=== PATIENT | female | born 1930 | race Caucasian/White ===

== ENCOUNTER → 2016-10-03 | Outpatient (CLI) | payer MEDICARE, BC ==
[~2016-10-03] MED LIST: ACID REDUCER; ALLOPURINOL100 MG PO; AMITRIPTYLINE 225 MG PO; AMLO5TAB PO; AMLODIPINE5 M1 PO; AMLODIPINE5 MG PO; ANTIVERT12.5 MG PO; APAP W/ CODEINE1 TAB PO; ASCRIPTIN325 MG PO; ASPIRIN 325MG325 MG PO; ASPIRIN 81MG TA81 MG PO; ASPIRIN ADULT L81 M2 PO; ASPIRIN81 MG PO; BACTRIM DS 8001 TAB PO; BENADRYL G12.5 MG/5 PO; BENTYL20 MG PO; BUSPAR 10MG TAB10 MG PO; CIPRO 500MG TA500 MG PO; DARVOCET-N 1001 EACH PO; DILTIAZEM CD 2240 MG PO; DOXYCYCLINE HY100 MG PO; DOXYCYCLINE MO100 MG PO; DYRENIUM50 MG PO; FISH OIL CONC1000 MG PO; FLAGYL250 MG PO; FLUTICASONE 50M16 GM; HYDROCHLOROTH12.5 M1 PO; ICAPS MV1 TA1 PO; IMDUR120 MG PO; IPRATROPIUM BROM3 M1 INH; ISOSORBIDE MON120 MG PO; Isosorbide Mono60 MG PO; KAPIDEX60 MG PO; LASIX20 MG PO; LEVAQUIN 750 M750 MG PO; LEVAQUIN500 MG PO; LEVOFLOXACIN 5500 MG PO; LEVOFLOXACIN 7750 M1 PO; LEVOTHYROXIN0.025 M1 PO; LEVOTHYROXINE0.1 MG PO; LOPRESSOR 25MG.25 M1 PO; LOPRESSOR 50 MG50 MG PO; LORTAB 5/500 501 TAB PO; LOSARTAN POTASS50 MG PO; MACROBID 100MG100 MG PO; MECLIZINE25 MG PO; MEDROL 4MG. DOSE4 MG PO; MELATONIN3 MG PO; METOPROLOL SUCC50 M1 PO; METOPROLOL100 MG PO; MICARDIS40 M1 PO; MICARDIS40 MG PO; MINOCYCLINE100 MG PO; MIRTAZAPINE15 M1 PO; MIRTAZAPINE30 MG PO; MOBIC7.5 MG PO; MULTI VITAMINS1 TA1 PO; Monodox100 MG PO; NITROQUICK0.4 MG SL; NITROSTAT0.4 MG SL; NORVASC5 MG PO; OMEPRAZOLE20 MG PO; PANTOPRAZOLE SO40 M1 PO; PERCOCET 5/3251 EACH PO; PRILOSEC20 MG PO; PROBIOTIC & ACI1 CAP PO; PROBIOTIC FORMU1 CA1 PO; PROBIOTIC1 EAC3 PO; PROTONIX 40MG T40 MG PO; RANITIDINE HCL150 MG PO; ROBITUSSIN DM S10 ML PO; SERTRALINE 50MG50 MG PO; SULFAMETHOXAZOL1 TA6 PO; SYNTHROID0.025 MG PO; TRAMADOL 512 EACH/PA PO; TRAZODONE 50MG50 MG PO; TRAZODONE100 MG PO; TUMS EX750 MG PO; TYLENOL 8 HOUR650 MG PO; TYLENOL ARTHRI650 MG PO; TYLENOL ES500 M1 PO; TYLENOL W/CODEI1 TA2 PO; TYLENOL WITH CO1 TA1 PO; ULTRACET 325 MG1 TAB PO; VIBRAMYCIN 100100 MG PO; VICODIN 5/500 T1 TAB PO; WARFARIN 3MG TAB3 MG PO; WARFARIN SODIUM3 MG PO; WARFARIN SODIUM4 MG PO; XANAX 0.5MG TA0.5 MG PO; XANAX0.5 MG OR; ZANTAC 150150 MG PO; ZOFRAN ODT4 MG PO; ZOFRAN4 MG PO; ZOLOFT 50MG TAB50 MG PO
== END ==
LOC: LAB 10:53
DX: I48.0 Paroxysmal atrial fibrillation (principal); Z79.01 Long term (current) use of anticoagulants; Z51.81 Encounter for therapeutic drug level monitoring

== ENCOUNTER 2017-01-10 15:51 | Emergency (ER) | payer MEDICARE, BC ==
[~2017-01-10] VITALS: Ht 165.1 cm; Wt 54.4 kg
[~2017-01-10 15:51] MED LIST changes: -BUSPAR 10MG TAB10 MG PO; -MELATONIN3 MG PO; -TYLENOL WITH CO1 TA1 PO; -WARFARIN 3MG TAB3 MG PO; -WARFARIN SODIUM4 MG PO
[2017-01-10] MEDS ORDERED: MELATONIN3 MG PO (16:22)
[2017-01-10] MEDS ORDERED: WARFARIN 3MG TAB3 MG PO (16:25)
[2017-01-10] MEDS ORDERED: WARFARIN SODIUM4 MG PO (16:25)
[2017-01-10] MEDS ORDERED: BUSPAR 10MG TAB10 MG PO (16:28)
--- NOTE | 2017-01-10 17:04 | Emergency Room Report ---
History of Present Illness Time Seen by [id number] Presenting Problem in Triage Pt arrived:Wheelchair Presenting Problem:C/O PAIN IN L ARM X2 DAYS, PT STATES NO KNOW INJURY. PT STATES PAIN WORSENS WITH MOVEMENT. 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 N Clinical Suspician of Infection? N Mental Status: 1 - Regular (Normal Baseline) Sepsis Risk:Low Sepsis Risk Have you (or family members/close friends) recently traveled outside the [place]? N If Yes, where/when: Have you had exposure to infectious disease within the past month? N TB? Other? Specify: Comment The patient complains of pain in her LEFT upper arm for 2-3 days. She says it hurts tries to move it so that now she can't move it at all. She denies any trauma or unusual activity. She locates the pain to the posterior side of her upper arm, upper triceps area. She is not otherwise ill. ALLERGIES Coded Allergies: cephalexin (Mild, 02/25/16) erythromycin base (Mild, 02/25/16) ezetimibe (From ZETIA) (Mild, 02/25/16) naproxen (Mild, 02/25/16) oxaprozin (Mild, 02/25/16) prednisone (Mild, 02/25/16) rofecoxib (From VIOXX) (Mild, 02/25/16) simvastatin (From ZOCOR) (Mild, 02/25/16) amoxicillin (From AUGMENTIN) (02/25/16) clavulanic acid (From AUGMENTIN) (02/25/16) Home Medications Active Scripts DILTIAZEM HCL (Diltiazem 24HR ER) 240 MG PO DAILY #30 Ref 5 Prov: 03/08/16 Reported Medications Metoprolol Tartrate (Lopressor) 50 MG PO BID Hydrochlorothiazide (Hydrochlorothiazide 12.5MG) 12.5 MG PO DAILY Allopurinol 100 MG PO BID Aspirin 81 MG PO DAILY Acetaminophen (Tylenol Arthritis) 650 MG PO TID Pantoprazole Sodium 40 MG PO DAILY #90 Isosorbide Mononitrate (Isosorbide Mononitrate ER) 120 MG PO DAILY #90 Levothyroxine Sodium (Levothyroxine 0.025MG) 0.025 MG PO DAILY #90 Mirtazapine 30 MG PO QHS #90 Melatonin 3 MG PO QHS WARFARIN SOD (Warfarin 3MG) 3 MG PO S,M,W,F,SAT Warfarin Sodium (Warfarin 4MG) 4.5 MG PO T,R Buspirone Hcl (Buspar 10MG) 10 MG PO BID #60 History Medical History General CAD? No Angina: Yes MO: No Hypertension? Yes Hyperlipidemia? Yes CHF? No DVT? No PE? No COPD? No Asthma? No Anemia? Yes GERD? No Gastric ulcers? No GI Bleed? No Hernia? Yes Thyroid Problems? No Hypothyroidism? No CVA? No Seizures? No Diabetes? No Insulin Dependent: No Insulin Pump: No Home FSBS? No Renal Insuffiency? Yes End Stage Renal Disease? No UTI? Yes Stones? No BPH? No GB Disease: Yes Nephritic Syndrome? No Asplenia? No Hepatitis? No Sickle Cell Disease? No Arthritis? Yes Migraines? No Cataracts? Yes Glaucoma? No MRSA? No HIV? No TB? No Anxiety? Yes Depression? Yes Cancer? No More? No Immunization Hx DT/Tetanus > 10 YRS Flu LAST YEAR Pneumonia Received In Past Surgical Hx Previous Surgery?Y [place] Back D & C STENT PLACEMENT CARDIAC R BREAST BIOPSY CATARACTS REMOVED RT FEMORAL ARTERY STENT TUBE IN RT EAR- OUT Appendix LEFT CARPEL TUNNEL R CARPAL TUNNEL Family History Family Hx Diabetes No CAD Yes Hypertension Yes Hyperlipidemia Yes Cancer Yes TB No Social History Smoking Hx Smoker: Never Smoker Tobacco: No Packs/day N/A Alcohol Alcohol: No Review of Systems All Other Systems Reviewed and Negative Constitutional denies fever Respiratory denies shortness of breath Cardiovascular denies chest pain Musculoskeletal joint pain (see HPI), denies neck pain Physical Exam Vital Signs Vital Signs Date Time Temp Pulse Resp B/P Pulse O2 O2 Flow FiO2 Ox Delivery Rate 01/10 1802 78 20 165/83 93 2.5 01/10 1729 72 20 164/80 98 01/10 1650 95 01/10 1603 98.3 75 20 183/81 95 2 General Appearance normal appearance, WD/WN Eye Exam - bilateral eye normal exam, bilateral eye PERRL, bilateral eye EOMI Ear, Nose, Throat hearing grossly normal, normal ENT inspection Neck normal inspection, non-tender, supple, full range of motion Respiratory Status Yes: trachea midline, chest symmetrical, non tender chest. No: respiratory distress. Lung Sounds bilateral: normal breath sounds, lungs clear. Cardiovascular normal exam, regular rate/rhythm, no peripheral edema, no gallop, no JVD, no murmur, no rub, normal peripheral pulses Peripheral Pulses Pulses normal Yes Gastrointestinal normal bowel sounds, normal exam, non tender, soft, no organomegaly Extremities she indicates tenderness in the LEFT upper arm posteriorly. She says it is tender there much more then over her shoulder joint. She has very minimal tenderness over the before GH joint. No tenderness over the clavicle or AC joint. no effusion. No erythema or heat., very limited range of motion of LEFT shoulder due to pain. Normal pulses, capillary refill, sensation, strength, and range of motion distal to the shoulder. 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 Yes [place] was queried for this patient? Yes Reference #: [id number] Comment 5:15 PM: The patient refuses any pain medication. 0 rxs. Results/Orders Laboratory Tests 01/10/17 1617: Sodium 122 L, Potassium 3.8, Chloride 83 L, Carbon Dioxide 35 H, BUN 10, Creatinine 0.6, Estimated Creat Clear 57, Estimated GFR (MDRD) 95, Glucose 121 H, Calcium 8.8, Total Bilirubin 0.6, AST 21, ALT 28, Alkaline Phosphatase 46, Creatine Kinase 30, CK-MB (CK-2) Rel Index 2.3, CK and CKMB Interp 0.7, Troponin I < 0.02, Total Protein 6.8, Albumin 3.6, Globulin 3.2, Albumin/Globulin Ratio 1.1, PT 20.9 H, INR 1.95 H, WBC 12.5 H, RBC 3.95 L, Hgb 12.4, Hct 36.5 L, MCV 92.5, RDW 12.7, Plt Count 236, MPV 6.4 L, Gran % 70.7, Gran # 8.9 H, Lymphocytes % 24.4, Monocytes % 4.6, Eosinophils % 0.2, Basophils % 0.1, Lymphocytes # 3.1, Monocytes # 0.6, Eosinophils # 0.0, Basophils # 0.0, PUBS MCHC 33.7, MCH 31.1 Current Medication Orders Sig/Es Start time Last Medication Dose Route Stop Time Status Admin Sodium Chloride 10 ML PRN PRN 01/10 1700 AC IV 01/11 1650 Orders Procedure Date/time Status STABILIZE JOINT 01/10 1830 Active PROTHROMBIN TIME 01/10 1726 Complete HUMERUS-LT 01/10 1717 Active ELECTROCARDIOGRAM REQUEST 01/10 165 Active [id number] VIEWS 01/10 1650 Active CHEST-PORTABLE 01/10 165 Active IV SALINE LOCK 01/10 165 Active OXYGEN PER NURSE 01/10 1650 Active CBC WITH AUTO DIFF 01/10 165 Complete CARDIAC ENZYMES 01/10 165 Complete CHEM 12 PROFILE 01/10 1650 Complete 12 LEAD EKG-JOHN (INITIAL) 01/10 UNK Active CM/EKG CM/EKG Comments EKG interpreted by Mahesh Strange MD: Rhythm: sinus Rate: 72 Dougherty: normal Ectopy: none Conduction: First-degree AV block ST Segment Changes: none T Wave Changes: none Q Waves: none No evidence of acute ischemia or injury Left ventricular hypertrophy Baseline artifact present, but I consider the EKG adequate for accurate interpretation. XRAY/CT/US XRAY/CT/US XRAY chest, shoulder, upper arm Comment X-ray interpreted by Mahesh Strange M.D.: Chest: Pulmonary fibrosis Humerus: No fracture or dislocation seen Shoulder: Extensive calcification at before meals joint. Calcification adjacent to the humeral head. No fracture seen. No dislocation. Departure Departure Disposition DC Home or Self Care(routine) Clinical Impression Primary Impression: Left shoulder pain Qualifiers: Chronicity: acute Qualified Code: M25.512 - Pain in left shoulder Condition STABLE Referrals John CAMPOS,Radhames Lopez (Family) Patient Instructions DI for Shoulder Pain Additional Instructions Sling as needed. Follow-up with orthopedic physician as soon as possible. Additional instructions for EXTREMITY PAIN: See your physician as soon as possible for further evaluation. Return to an emergency department immediately if you have uncontrollable pain, loss of feeling or inability to move your injured extremity. Additional instructions for CONTROLLED SUBSTANCES: You have been prescribed a medication that is a controlled substance. Controlled substances include pain medications known as opiates and sedative nerve medications known as benzodiazepines. Some common opiates include: Codeine (such as Tylenol #3) Hydrocodone (Vicodin, Lortab, Lorcet, [place]) Oxycodone (Percocet, Percodan, Oxycodone, Oxy IR) Some common benzodiazepines include: Diazepam (Valium) Lorazepam (Ativan) Alprazolam (Xanax) Clonazepam (Klonopin) Oxazepam (Serax) All of these controlled substances are highly addictive and frequently abused. Misuse can and frequently does lead to addiction as well as overdose and . Short term supplies, 3 days or less, are prescribed because of the highly addictive nature of the medication. Any of the controlled substance medication NOT taken should be disposed of properly and NOT SAVED. The recommended method of disposing of unused medications is: Place the medicines in a sealable plastic bag. If the medicine is a solid, crush it or add water to dissolve it. Add something undesirable (cat litter, coffee grounds, etc.) Dispose of sealed bag in household trash Do not flush or pour unused medicines down a sink or drain. Also, because of the addictive nature and frequent abuse, these medications are sometimes stolen. These medications should be kept in a safe place where they cannot be stolen. Do not keep them in your car or purse. Lost or stolen prescriptions for controlled substances WILL NOT BE REFILLED in this emergency department, regardless of whether a police report was filed. Prescriptions Current Visit Scripts ACETAMINOPHEN WITH CODEINE (Tylenol With Codeine #3 Tablet) 1 TAB PO Q6HP PRN pain #10 TAB ED Critical Care Critical Care No at 1831
[2017-01-10 18:04] LABS: BUN 10 mg/dL (7-18)
[2017-01-10 18:06] LABS: GFR (ESTIMATED) 95 ML/MIN (59-)
[2017-01-10 18:15] LABS: LYMPH # 3.1 K/mm3 (0.7-4.5); LYMPH % 24.4 % (10-50.0)
[2017-01-10 18:18] LABS: HEMOGLOBIN 12.4 g/dL (12.2-16.2)
[2017-01-10] MEDS ORDERED: TYLENOL WITH CO1 TA1 PO (18:30)
[2017-01-10 18:50] VITALS: BP 166/77
--- NOTE | 2017-01-10 20:21 | RADIOLOGY REPORT PS360 ---
[id number] VIEWS COMPARISON: Right shoulder 12/15/2010 HISTORY: Left shoulder pain TECHNIQUE: 3 views left shoulder FINDINGS: The clavicle is intact. There is prominent hypertrophic spurring of the AC joint both superiorly and inferiorly similar to the right shoulder film from November 2010. There also is faint calcification in the supraspinatus tendon near the critical zone. Humeral head and neck appear intact. IMPRESSION: Faint calcific tendinitis as indicated along with prominent degenerative hypertrophic changes of the AC joint similar to the right shoulder.
--- NOTE | 2017-01-10 20:40 | RADIOLOGY REPORT PS360 ---
HUMERUS-LT COMPARISON: Right humerus 09/29/2014 HISTORY: Left arm pain TECHNIQUE: AP lateral and oblique views FINDINGS: The humeral head and humeral shaft appear intact with no evidence of recent or old fracture. There is minor cortical irregularity of the greater tuberosity and is faint calcification likely within the supraspinatous tendon at the critical zone. The supracondylar humerus appears grossly normal. There are tiny dystrophic calcifications adjacent to the medial and lateral epicondyles of the humerus. IMPRESSION: Findings as described, no acute fracture seen.
--- NOTE | 2017-01-10 20:45 | RADIOLOGY REPORT PS360 ---
CHEST-PORTABLE COMPARISON: Portable upright chest 03/03/2016 HISTORY: Chest pain TECHNIQUE: Oral upright chest FINDINGS: There are low lung volumes bilaterally as noted previously. Prominent advanced interstitial fibrotic changes are seen in both lung baeza as noted on previous chest film. Again changes are slightly more prominent right lateral and lower lung baeza than left side. There is borderline cardiomegaly. The vascularity is difficult to evaluate because of the background interstitial changes but there is no obvious pulmonary congestion. There is no definite acute pneumonic infiltrate. IMPRESSION: Advanced interstitial pulmonary fibrosis basically stable and unchanged from the previous exam, doubt acute chest pathology
== END 2017-01-10 18:56 | disposition home or self-care (01) ==
LOC: ER 15:51
PROVIDERS: Emergency Medicine
DX: M25.512 Pain in left shoulder (principal); I10 Essential (primary) hypertension; F41.8 Other specified anxiety disorders; J84.10 Pulmonary fibrosis, unspecified

== ENCOUNTER → 2017-02-03 | Outpatient (CLI) | payer MEDICARE, BC ==
[~2017-02-03] MED LIST changes: +BUSPAR 10MG TAB10 MG PO; +MELATONIN3 MG PO; +TYLENOL WITH CO1 TA1 PO; +WARFARIN 3MG TAB3 MG PO; +WARFARIN SODIUM4 MG PO
== END ==
LOC: LAB 13:27
DX: I48.0 Paroxysmal atrial fibrillation (principal); Z79.01 Long term (current) use of anticoagulants; Z51.81 Encounter for therapeutic drug level monitoring

== ENCOUNTER → 2017-08-08 | Outpatient (CLI) | payer MEDICARE, BC ==
[2017-08-08 17:58] LABS: URINE BILIRUBIN - DIPSTICK NEGATIVE (NEG); URINE BLOOD NEGATIVE (NEG)
[2017-08-08 18:14] LABS: URINE RENAL CELLS OCC #/HPF; URINE SQUAMOUS CELLS 20-50 #/hpf (0-5)
== END ==
LOC: LAB 17:04
PROVIDERS: Internal Medicine Adolescent Medicine
DX: N39.0 Urinary tract infection, site not specified (principal)